=== PATIENT | male | born 1985 ===

== ENCOUNTER 2018-09-04 19:00 | Inpatient (IN) | payer OTHER ==
--- NOTE | 2018-09-04 19:59 | C.PDOC ---
History Of Present Illness 33 year old male with PMHx of HTN, thyroid disorder, sarcoidosis presents to the ED c/o cough, SOB, right side chest pain only when breathing for the past 3 days. Patient also reports body aches and fever T max 103 currently 102 today. Patient reports he has not taken medications for his symptoms. Patient denies chills, nausea, vomit, diarrhea, rash, recent travel, sick contacts, abdominal pain. Time Seen by Provider: 09/04/18 19:56 Chief Complaint (Nursing): Shortness Of Breath History Per: Patient History/Exam Limitations: no limitations Onset/Duration Of Symptoms: Days (3) Current Symptoms Are (Timing): Still Present Initiating Event: Upper Respiratory Illness Quality: "Pain" Exacerbating Factor(s): Coughing Current Respiratory Medications: See Home Med List Associated Symptoms: Fever Recent travel outside of the [place]: No Additional History Per: Patient Past Medical History Reviewed: Historical Data, Nursing Documentation, Vital Signs Vital Signs: Last Vital Signs Temp 99.8 F H 09/04/18 19:43 Pulse 117 H 09/04/18 19:43 Resp 20 09/04/18 19:43 BP 132/85 09/04/18 19:43 Pulse Ox 98 09/04/18 19:43 - Medical History PMH: HTN Other PMH: sarcoidosis Surgical History: No Surg Hx Family History: States: Unknown Family Hx - Social History Hx Tobacco Use: No Hx Alcohol Use: Yes Hx Substance Use: No Review Of Systems Constitutional: Positive for: Fever. Negative for: Chills Cardiovascular: Positive for: Chest Pain. Negative for: Palpitations Respiratory: Positive for: Cough, Shortness of Breath Gastrointestinal: Negative for: Nausea, Vomiting, Abdominal Pain Skin: Negative for: Rash Neurological: Negative for: Weakness, Numbness, Headache, Dizziness Physical Exam - Physical Exam Appears: Non-toxic, No Acute Distress Skin: Normal Color, Warm, Dry Head: Atraumatic, Normacephalic Eye(s): bilateral: Normal Inspection, PERRL, EOMI Ear(s): Bilateral: Normal Oral Mucosa: Moist Throat: Normal, No Erythema, No Exudate Neck: Normal ROM, Supple Chest: Symmetrical Cardiovascular: Rhythm Regular (tachycardic) Respiratory: No Rales, No Rhonchi, No Wheezing, Other (right lung field crackles) Gastrointestinal/Abdominal: Bowel Sounds (active), Soft, No Tenderness, No Guarding, No Rebound Extremity: Normal ROM, No Tenderness, No Pedal Edema Neurological/Psych: Oriented x3, Normal Speech, Normal Cognition Gait: Steady ED Course And Treatment - Laboratory Results Result Diagrams: 09/04/18 20:50 09/04/18 20:50 ECG: Interpreted By Me, Viewed By Me ECG Rhythm: Sinus Tachycardia Interpretation Of ECG: Normal axis, normal intervals, no ST elevations Rate From EC (BPM) O2 Sat by Pulse Oximetry: 98 (ON RA) Pulse Ox Interpretation: Normal - Radiology CXR: Interpreted by Me, Viewed By Me CXR Interpretation: Yes: Infiltrates (right middle and lower lobe) Medical Decision Making Medical Decision Making: Plan: * Labs * Blood culture * IV fluids * Rapid flu * CXR 22:50 - Discussed imaging and lab results with patient, patient was told about plan to stay in the Hospital for observation and patient agrees with treatment course. Spoke with Dr. Calvin Jorge who will accept patient to his service. Disposition - Disposition Disposition: HOSPITALIZED Disposition Time: 22:50 Condition: STABLE - Clinical Impression Clinical Impression: Pneumonia, Sarcoidosis of lung - Scribe Statement The provider has reviewed the documentation as recorded by the Scribe David Schilling All medical record entries made by the Scribe were at my direction and personally dictated by me. I have reviewed the chart and agree that the record accurately reflects my personal performance of the history, physical exam, medical decision making, and the department course for this patient. I have also personally directed, reviewed, and agree with the discharge instructions and disposition.
[2018-09-04 20:58] LABS: BASO # 0.1 K/uL (0.0-0.2); BASO % 0.6 % (0.0-2.0); EOS % 0.2 % (0.0-4.0); HEMOGLOBIN 14.9 g/dL (12.0-18.0); LYMPH # 1.2 K/uL (1.0-4.3); LYMPH % 13.3 % (20.0-40.0); MEAN CELL VOLUME 87.8 fL (80.0-94.0); MEAN CORPUSCULAR HGB CONC 35.4 g/dL (33.0-37.0); MONO # 0.8 K/uL (0.0-0.8); MONO % 8.4 % (0.0-10.0); NEUT % 77.5 % (50.0-75.0); RBC 4.79 Mil/uL (4.40-5.90); WHITE BLOOD COUNT 9.1 K/uL (4.8-10.8)
[2018-09-04 21:20] LABS: ALB/GLOB RATIO 1.4 (1.0-2.1); ALBUMIN 4.9 g/dL (3.5-5.0); ALT/SGPT 68 U/L (21-72); AST/SGOT 32 U/L (17-59); BLOOD UREA NITROGEN 16 mg/dL (9-20); CALCIUM 10.3 mg/dl (8.6-10.4); GFR NON-AFRICAN AMERICAN > 60
[2018-09-04] MEDS ORDERED: cefTRIAXone IV 1 gm in Dextros 50 ML IV STA (21:47)
[2018-09-04] MEDS ORDERED: Azithromycin 500mg/250ML NS 500 MG/250 ML BAG IV STA (21:47)
[2018-09-04] MEDS ORDERED: cefTRIAXone 1 gm 1 GM/100 ML BAG IVPB ONE (22:00)
[2018-09-04] MEDS ORDERED: Azithromycin 500mg/250ML NS 500 MG/250 ML BAG IVPB ONE (22:01)
[2018-09-04 23:51] VITALS: RESP 20
--- NOTE | 2018-09-05 08:17 | RAD ---
Date of service: 09/04/2018 HISTORY: Pneumonia COMPARISON: No prior. TECHNIQUE: Chest PA and lateral FINDINGS: LUNGS: Wedge like opacity right mid upper lung zone present. Asymmetrical prominence of right hilum. PLEURA: No significant pleural effusion identified. No pneumothorax apparent. CARDIOVASCULAR: No aortic atherosclerotic calcification present. Normal cardiac size. No pulmonary vascular congestion. OSSEOUS STRUCTURES: No significant abnormalities. VISUALIZED UPPER ABDOMEN: Normal. OTHER FINDINGS: None. IMPRESSION: Right mid to upper lung zone peripheral subsegmental infiltrate with or without atelectasis. Asymmetrical soft tissue prominence-right hilum-right hilar lymphadenopathy and/or blending right perihilar infiltrate. Follow-up recommended.
[2018-09-05] MEDS: Levothyroxine 25 MCG TAB PO SCH (08:59)
[2018-09-05] MEDS: Azithromycin 500mg/250ML NS 500 MG/250 ML BAG IVPB SCH (09:06)
[2018-09-05] MEDS: Enoxaparin 40 mg Syringe SC SCH (09:58)
[2018-09-05] MEDS ORDERED: Enoxaparin 40 mg Syringe SC SCH ×2 (10:00)
[2018-09-05] MEDS: cefTRIAXone IV 1 gm in Dextros 50 ML IVPB SCH (10:07)
--- NOTE | 2018-09-05 15:55 | CP.PCM.HP ---
Past Patient History - Past Social History Smoking Status: Never Smoked - CARDIAC Hx Hypertension: Yes - PULMONARY Other/Comment: Sarcoidosis - PSYCHIATRIC Hx Substance Use: No Meds Allergies/Adverse Reactions: Allergies Allergy/AdvReac Type Severity Reaction Status Date / Time No Known Allergies Allergy Verified 09/04/18 19:18 Physical Exam - Constitutional Appears: Well - Head Exam Head Exam: ATRAUMATIC, NORMAL INSPECTION, NORMOCEPHALIC - Eye Exam Eye Exam: EOMI, Normal appearance, PERRL Pupil Exam: NORMAL ACCOMODATION, PERRL - ENT Exam ENT Exam: Mucous Membranes Moist, Normal Exam - Neck Exam Neck exam: Positive for: Normal Inspection - Respiratory Exam Respiratory Exam: Decreased Breath Sounds - Cardiovascular Exam Cardiovascular Exam: REGULAR RHYTHM, +S1, +S2 - GI/Abdominal Exam GI & Abdominal Exam: Diminished Bowel Sounds, Soft - Rectal Exam Rectal Exam: Deferred Results - Vital Signs Recent Vital Signs: Last Vital Signs Temp 99.9 F H 09/05/18 07:26 Pulse 86 09/05/18 07:26 Resp 20 09/05/18 07:26 BP 138/88 09/05/18 07:26 Pulse Ox 95 09/05/18 13:59 - Labs Result Diagrams: 09/04/18 20:50 09/04/18 20:50 Labs: Laboratory Results - last 24 hr 09/04/18 09/04/18 09/04/18 20:50 20:50 21:27 WBC 9.1 RBC 4.79 Hgb 14.9 Hct 42.0 MCV 87.8 MCH 31.0 MCHC 35.4 RDW 14.0 Plt Count 231 MPV 8.0 Neut % (Auto) 77.5 H Lymph % (Auto) 13.3 L King % (Auto) 8.4 Eos % (Auto) 0.2 Baso % (Auto) 0.6 Neut # (Auto) 7.0 Lymph # (Auto) 1.2 King # (Auto) 0.8 Eos # (Auto) 0.0 Baso # (Auto) 0.1 Sodium 139 Potassium 4.2 Chloride 101 Carbon Dioxide 21 L Anion Gap 20 BUN 16 Creatinine 1.3 Est GFR ( Amer) > 60 Est GFR (Non-Af Amer) > 60 Random Glucose 112 H Calcium 10.3 Total Bilirubin 1.3 AST 32 ALT 68 Alkaline Phosphatase 89 Total Protein 8.5 H Albumin 4.9 Globulin 3.6 Albumin/Globulin Ratio 1.4 Influenza Typ A,B (EIA) Negative for flu a/b
[2018-09-05] MEDS ORDERED: Iohexol 300 100 ML IJ ONE (17:36)
--- NOTE | 2018-09-05 17:38 | CP.PCM.CON ---
History of Present Illness - History of Present Illness History of Present Illness: Patient is a 33 y/o male with PMHx of hypothyroidism, HTN, and sarcoidosis (diagnosed in 2016 via biopsy), who presented to the ED on 09/04/18 with complaint of shortness of breath, chest pain, and cough. Patient states he has been having flu-like symptoms for the past three days, including body aches, fever, and chills, with Tmax of 103F. Patient admits to being around his girlfriend and son, who were both sick last week. Currently, patient has shortness of breath, intermittent dry cough, and right-sided chest and back pain with cough. Denies fever, chills. ROS: per HPI PMHx: sarcoidosis (2016; sees Dr. Lynch, a stock checkerer in [facility]; has flare-ups once a yr.), HTN, hypothyroidism PSHx: denies FHx: mother-rheumatoid arthritis, father-unknown Meds: methotrexate 15mg, levothyroxine Allergies: denies Social: smoked couple cigarettes/day, on/off for +10 yrs, quit 6 months ago; occasional alcohol use; denies drug use; lives with girlfriend and two children; has bunny and 4 turtles as pets; works as a electric lift truck driver for [employer]. -CXR (09/04): right [id number] lung zone peripheral subsegmental infiltrate with or without atelectasis; asymmetrical soft tissue prominence-right hilum- right hilar lymphadenopathy and/or blending right perihilar infiltrate; f/u recommended. Review of Systems - Review of Systems All systems: reviewed and no additional remarkable complaints except (cough and shortness of breath) Past Patient History - Past Social History Smoking Status: Never Smoked - CARDIAC Hx Hypertension: Yes - PULMONARY Other/Comment: Sarcoidosis - PSYCHIATRIC Hx Substance Use: No Meds Allergies/Adverse Reactions: Allergies Allergy/AdvReac Type Severity Reaction Status Date / Time No Known Allergies Allergy Verified 09/04/18 19:18 - Medications Medications: Current Medications Acetaminophen (Tylenol 325mg Tab) 650 mg PO Q6H PRN PRN Reason: Pain, moderate (4-7) Last Admin: 09/05/18 08:32 Dose: 650 mg Enoxaparin Sodium (Lovenox) 40 mg SC DAILY [facility] Last Admin: 09/05/18 09:58 Dose: 40 mg Ceftriaxone Sodium (Rocephin Iv 1 Gm Duplex) 50 mls @ 100 mls/hr IVPB DAILY [facility]; Protocol Last Admin: 09/05/18 10:07 Dose: 100 mls/hr Azithromycin (Zithromax 500mg In Ns Addvantage) 500 mg in 250 mls @ 167 mls/hr IVPB Q24H [facility]; Protocol Last Admin: 09/05/18 09:06 Dose: 167 mls/hr Influenza Virus Vaccine (Fluzone Quad 3902-6347) 60 mcg IM .ONCE ONE Stop: 09/07/18 10:01 Levothyroxine Sodium (Synthroid) 25 mcg PO 0600 [facility] Last Admin: 09/05/18 08:59 Dose: 25 mcg Losartan Potassium (Cozaar) 25 mg PO DAILY [facility] Last Admin: 09/05/18 09:59 Dose: 25 mg Pneumococcal Polyvalent Vaccine (Pneumovax 23 Vaccine) 0.5 ml IM .ONCE ONE Stop: 09/07/18 10:01 Trazodone HCl (Desyrel) 25 mg PO HS PRN PRN Reason: Sleep Physical Exam - Head Exam Head Exam: ATRAUMATIC, NORMOCEPHALIC - ENT Exam ENT Exam: Mucous Membranes Moist - Neck Exam Neck exam: Positive for: Normal Inspection - Respiratory Exam Respiratory Exam: Rales - Cardiovascular Exam Cardiovascular Exam: REGULAR RHYTHM - GI/Abdominal Exam GI & Abdominal Exam: Normal Bowel Sounds, Soft - Extremities Exam Extremities exam: Positive for: normal inspection - Neurological Exam Neurological exam: Alert, Oriented x3 Results - Vital Signs Recent Vital Signs: Last Vital Signs Temp 98.7 F 09/05/18 16:00 Pulse 88 09/05/18 16:00 Resp 20 09/05/18 16:00 BP 134/89 09/05/18 16:00 Pulse Ox 99 09/05/18 16:00 - Labs Result Diagrams: 09/04/18 20:50 09/04/18 20:50 Labs: Laboratory Results - last 24 hr 09/04/18 09/04/18 09/04/18 20:50 20:50 21:27 WBC 9.1 RBC 4.79 Hgb 14.9 Hct 42.0 MCV 87.8 MCH 31.0 MCHC 35.4 RDW 14.0 Plt Count 231 MPV 8.0 Neut % (Auto) 77.5 H Lymph % (Auto) 13.3 L Glenn % (Auto) 8.4 Eos % (Auto) 0.2 Baso % (Auto) 0.6 Neut # (Auto) 7.0 Lymph # (Auto) 1.2 Glenn # (Auto) 0.8 Eos # (Auto) 0.0 Baso # (Auto) 0.1 Sodium 139 Potassium 4.2 Chloride 101 Carbon Dioxide 21 L Anion Gap 20 BUN 16 Creatinine 1.3 Est GFR ( Amer) > 60 Est GFR (Non-Af Amer) > 60 Random Glucose 112 H Calcium 10.3 Total Bilirubin 1.3 AST 32 ALT 68 Alkaline Phosphatase 89 Troponin I Total Protein 8.5 H Albumin 4.9 Globulin 3.6 Albumin/Globulin Ratio 1.4 Influenza Typ A,B (EIA) Negative for flu a/b 09/05/18 16:06 WBC RBC Hgb Hct MCV MCH MCHC RDW Plt Count MPV Neut % (Auto) Lymph % (Auto) Glenn % (Auto) Eos % (Auto) Baso % (Auto) Neut # (Auto) Lymph # (Auto) Glenn # (Auto) Eos # (Auto) Baso # (Auto) Sodium Potassium Chloride Carbon Dioxide Anion Gap BUN Creatinine Est GFR ( Amer) Est GFR (Non-Af Amer) Random Glucose Calcium Total Bilirubin AST ALT Alkaline Phosphatase Troponin I < 0.0120 Total Protein Albumin Globulin Albumin/Globulin Ratio Influenza Typ A,B (EIA) Assessment & Plan (1) Pneumonia Assessment and Plan: continue antibiotics CAT scan of the chest Followup culture and sensitivity Status: Acute (2) Sarcoidosis of lung Status: Acute
--- NOTE | 2018-09-05 18:32 | CT ---
Date of service: 09/05/2018 PROCEDURE: CT Chest with contrast HISTORY: hilar prominance on cxr, sob COMPARISON: Chest radiographs 09/04/2018. TECHNIQUE: Contiguous axial images were obtained through the chest with intravenous contrast enhancement. Sagittal and coronal reconstructions were performed. IV contrast: Omnipaque 300, 100 cc Radiation dose: Total exam DLP = 638.4 mGy-cm. This CT exam was performed using one or more of the following dose reduction techniques: Automated exposure control, adjustment of the mA and/or kV according to patient size, and/or use of iterative reconstruction technique. FINDINGS: LUNGS: A dense infiltrate affects the right lower lobe with a nodular component noted at the base. This could reflect atelectasis focally however follow-up CT following therapy is advised to exclude underlying lesion here. There is small nodular infiltrate identified in the left upper lobe which also requires follow-up. Limited right upper lobe infiltrate and linear atelectasis or fibrosis present with linear atelectasis identified at the right lower lobe superior segment and left lower lobe medial basilar segment. Central airways appear clear. MEDIASTINUM: The thoracic inlet appears unremarkable. Normal sized heart. Main pulmonary artery unremarkable. No vascular congestion. No significant lymphadenopathy. Partially calcified subcarinal lymph node identified. No aortic atherosclerotic calcification or mural plaque present. PLEURA: No pleural fluid. No pneumothorax. BONES: No fracture. No destructive lesion. UPPER ABDOMEN: Hepatosplenomegaly as imaged. The entire liver and spleen are not completely captured in this exam. Diffuse diminished attenuation of the liver appears extensive indicating hepatic steatosis. OTHER FINDINGS: None. IMPRESSION: 1. Poly lobar infiltrates but primarily affecting the right lower lobe. Nodular components of the right lower and left upper lobes require follow-up CTs to exclude underlying lesions. 2. No significant lymphadenopathy. No pleural effusion identified. Partial calcified subcarinal lymph node identified. 3. Incidental hepatosplenomegaly, partially captured in upper abdomen sections provided. Extensive hepatic steatosis identified.
[2018-09-05] MEDS ORDERED: Alum-Mag Hydrox-Simethicone Susp (30 mL) PO PRN (20:03)
[2018-09-05] MEDS: Pantoprazole 40 mg EC Tab PO SCH (21:19)
[2018-09-05] MEDS ORDERED: traZODone 25 mg Tab PO PRN (22:00)
[2018-09-06] MEDS: Levothyroxine 25 MCG TAB PO SCH (05:52)
[2018-09-06] MEDS: Azithromycin 500mg/250ML NS 500 MG/250 ML BAG IVPB SCH (08:34)
[2018-09-06] MEDS: cefTRIAXone IV 1 gm in Dextros 50 ML IVPB SCH (09:42)
[2018-09-06] MEDS: Enoxaparin 40 mg Syringe SC SCH (09:44)
[2018-09-06] MEDS: Pantoprazole 40 mg EC Tab PO SCH (09:44)
--- NOTE | 2018-09-06 17:04 | CP.PCM.PN ---
Subjective - Date & Time of Evaluation Date of Evaluation: 09/06/18 Time of Evaluation: 08:15 - Subjective Subjective: clinically same Objective - Vital Signs/Intake and Output Vital Signs (last 24 hours): Temp Pulse Resp BP Pulse Ox 99.2 F 75 20 144/97 H 100 09/06/18 16:41 09/06/18 16:41 09/06/18 16:41 09/06/18 16:41 09/06/18 16:41 Intake and Output: 09/06/18 09/06/18 06:59 18:59 Intake Total 540 800 Output Total 400 Balance 140 800 - Medications Medications: Current Medications Acetaminophen (Tylenol 325mg Tab) 650 mg PO Q6H PRN PRN Reason: Pain, moderate (4-7) Last Admin: 09/05/18 08:32 Dose: 650 mg Al Hydrox/Mg Hydrox/Simethicone (Maalox Plus 30 Ml) 30 ml PO Q8H PRN PRN Reason: Indigestion / Heartburn Last Admin: 09/05/18 20:12 Dose: 30 ml Enoxaparin Sodium (Lovenox) 40 mg SC DAILY [facility] Last Admin: 09/06/18 09:44 Dose: 40 mg Ceftriaxone Sodium (Rocephin Iv 1 Gm Duplex) 50 mls @ 100 mls/hr IVPB DAILY [facility]; Protocol Last Admin: 09/06/18 09:42 Dose: 100 mls/hr Moxifloxacin HCl (Avelox Iv 400mg/250ml Ns) 400 mg in 250 mls @ 167 mls/hr IVPB Q24H [facility]; Protocol Influenza Virus Vaccine (Fluzone Quad 3509-5354) 60 mcg IM .ONCE ONE Stop: 09/07/18 10:01 Levothyroxine Sodium (Synthroid) 25 mcg PO 0600 [facility] Last Admin: 09/06/18 05:52 Dose: 25 mcg Losartan Potassium (Cozaar) 25 mg PO DAILY [facility] Last Admin: 09/06/18 09:44 Dose: 25 mg Pantoprazole Sodium (Protonix Ec Tab) 40 mg PO DAILY [facility] Last Admin: 09/06/18 09:44 Dose: 40 mg Pneumococcal Polyvalent Vaccine (Pneumovax 23 Vaccine) 0.5 ml IM .ONCE ONE Stop: 09/07/18 10:01 Trazodone HCl (Desyrel) 25 mg PO HS PRN PRN Reason: Sleep - Labs Labs: 09/04/18 20:50 09/04/18 20:50 - Constitutional Appears: Well - Head Exam Head Exam: ATRAUMATIC, NORMAL INSPECTION, NORMOCEPHALIC - Eye Exam Eye Exam: EOMI, Normal appearance, PERRL Pupil Exam: NORMAL ACCOMODATION, PERRL - ENT Exam ENT Exam: Mucous Membranes Moist, Normal Exam - Neck Exam Neck Exam: Full ROM, Normal Inspection. absent: Lymphadenopathy - Respiratory Exam Respiratory Exam: Decreased Breath Sounds - Cardiovascular Exam Cardiovascular Exam: REGULAR RHYTHM, +S1, +S2 - GI/Abdominal Exam GI & Abdominal Exam: Soft, Diminished Bowel Sounds - Rectal Exam Rectal Exam: Deferred
--- NOTE | 2018-09-06 23:44 | CARD ---
APPROVED REPORT Date of service: 09/05/2018 EKG Measurement Heart [id number] <Conclusion> Sinus tachycardia Possible Left atrial enlargement Borderline ECG
[2018-09-07] MEDS: Levothyroxine 25 MCG TAB PO SCH (05:40)
[2018-09-07 08:00] VITALS: BP 118/82; PULSE 78; TEMP 98.8
[2018-09-07] MEDS ORDERED: Moxifloxacin IV 400mg/250ml NS 400 MG/250 ML BAG IVPB SCH (09:00)
--- NOTE | 2018-09-07 09:15 | CP.PCM.PN ---
Subjective - Date & Time of Evaluation Date of Evaluation: 09/07/18 Time of Evaluation: 08:40 - Subjective Subjective: Patient seen and examined at bedside, lying down comfortably. Afebrile and in no acute distress. Patient states shortness of breath and cough much better since yesterday; denies chest pain, fever, chills. Attributes to having some epigastric "discomfort" every time he receives Abx; however, goes away after completion of dose. -CT chest (09/05): 1)Poly lobar infiltrates but primarily affecting the right lower lobe; nodular components of right lower and left upper lobes; require follow-up CT to exclude underlying lesion. 2) No significant lympadenopathy; no pleural effusion identified; partial calcified subcarinal lymph node identified. 3) Incidental hepatosplenomegaly, partially captured in upper abdomen sections provided; extensive hepatic steatosis identified. Objective - Vital Signs/Intake and Output Vital Signs (last 24 hours): Temp Pulse Resp BP Pulse Ox 98.8 F 78 20 118/82 97 09/07/18 07:59 09/07/18 07:59 09/07/18 07:59 09/07/18 07:59 09/07/18 07:59 Intake and Output: 09/07/18 09/07/18 06:59 18:59 Intake Total 600 Output Total 500 Balance 100 - Medications Medications: Current Medications Acetaminophen (Tylenol 325mg Tab) 650 mg PO Q6H PRN PRN Reason: Pain, moderate (4-7) Last Admin: 09/05/18 08:32 Dose: 650 mg Al Hydrox/Mg Hydrox/Simethicone (Maalox Plus 30 Ml) 30 ml PO Q8H PRN PRN Reason: Indigestion / Heartburn Last Admin: 09/05/18 20:12 Dose: 30 ml Enoxaparin Sodium (Lovenox) 40 mg SC DAILY [facility] Last Admin: 09/06/18 09:44 Dose: 40 mg Ceftriaxone Sodium (Rocephin Iv 1 Gm Duplex) 50 mls @ 100 mls/hr IVPB DAILY [facility]; Protocol Last Admin: 09/06/18 09:42 Dose: 100 mls/hr Moxifloxacin HCl (Avelox Iv 400mg/250ml Ns) 400 mg in 250 mls @ 167 mls/hr IVPB Q24H [facility]; Protocol Influenza Virus Vaccine (Fluzone Quad 8552-8262) 60 mcg IM .ONCE ONE Stop: 09/07/18 10:01 Levothyroxine Sodium (Synthroid) 25 mcg PO 0600 [facility] Last Admin: 09/07/18 05:40 Dose: 25 mcg Losartan Potassium (Cozaar) 25 mg PO DAILY [facility] Last Admin: 09/06/18 09:44 Dose: 25 mg Pantoprazole Sodium (Protonix Ec Tab) 40 mg PO DAILY [facility] Last Admin: 09/06/18 09:44 Dose: 40 mg Pneumococcal Polyvalent Vaccine (Pneumovax 23 Vaccine) 0.5 ml IM .ONCE ONE Stop: 09/07/18 10:01 Trazodone HCl (Desyrel) 25 mg PO HS PRN PRN Reason: Sleep - Labs Labs: 09/04/18 20:50 09/04/18 20:50 - Head Exam Head Exam: ATRAUMATIC, NORMOCEPHALIC - ENT Exam ENT Exam: Mucous Membranes Moist - Respiratory Exam Respiratory Exam: Rales - Cardiovascular Exam Cardiovascular Exam: REGULAR RHYTHM - GI/Abdominal Exam GI & Abdominal Exam: Soft, Normal Bowel Sounds Assessment and Plan (1) Pneumonia Assessment & Plan: continue antibiotics Patient wants to go home Follow up in the office Status: Acute (2) Sarcoidosis of lung Status: Acute
[2018-09-07] MEDS: Enoxaparin 40 mg Syringe SC SCH (09:16)
[2018-09-07] MEDS: Pantoprazole 40 mg EC Tab PO SCH (09:17)
[2018-09-07] MEDS ORDERED: Influenza Vaccine 60 MCG/0.5 ML SYR (3 yr & up) IM ONE (10:00)
[2018-09-07] MEDS ORDERED: Pneumococcal 23-Valent Vaccine IM ONE (10:00)
[2018-09-07] MEDS: cefTRIAXone IV 1 gm in Dextros 50 ML IVPB SCH (11:00)
--- NOTE | 2018-09-07 18:00 | CP.PCM.PN ---
Subjective - Date & Time of Evaluation Date of Evaluation: 09/07/18 Time of Evaluation: 11:10 Objective - Vital Signs/Intake and Output Vital Signs (last 24 hours): Temp Pulse Resp BP Pulse Ox 98.8 F 78 20 118/82 97 09/07/18 07:59 09/07/18 07:59 09/07/18 07:59 09/07/18 07:59 09/07/18 07:59 Intake and Output: 09/07/18 09/07/18 06:59 18:59 Intake Total 600 500 Output Total 500 Balance 100 500 - Labs Labs: 09/04/18 20:50 09/04/18 20:50
[2018-09-08 13:18] VITALS: O2SAT 98
== END 2018-09-07 15:30 | disposition home or self-care (01) | DRG 195 ==
LOC: C.ER 19:00 → C.3T 22:45 → OBSVTOIN 09-06 14:16
PROVIDERS: ADMIT Internal Medicine Nephrology; ATTEND Internal Medicine Nephrology
DX: J18.9 Pneumonia, unspecified organism (principal); D86.0 Sarcoidosis of lung; E03.9 Hypothyroidism, unspecified; I10 Essential (primary) hypertension; K76.0 Fatty (change of) liver, not elsewhere classified; R16.2 Hepatomegaly with splenomegaly, not elsewhere classified